=== PATIENT | male | born 1990 | race African-American/Black ===

== ENCOUNTER 2019-12-19 16:36 | Inpatient (IN) | payer MEDICAID ==
[~2019-12-19] VITALS: Ht 190.5 cm; Wt 100.1 kg
--- NOTE | 2019-12-19 16:48 | NUR ---
PT VERY VAGUE WITH SYMPTOMS AT THIS TIME. DR. MENDEZ AT BEDSIDE. PT'S SIGNIFICANT OTHER AT BEDSIDE.
[2019-12-19 17:19] LABS: BASOPHILS 0.4 % (0-2); HEMATOCRIT 43.5 % (42.0-54.0); HEMOGLOBIN 15.1 g/dL (13.5-17.5); IMMATURE GRANULOCYTES 0.1 % (0-5); LYMPHOCYTES 30.8 % (15-50); MCH 28.8 pg (26.0-34.0); MCHC 34.7 g/dL (31.0-37.0); MEAN PLATELET VOLUME 10.9 fL (7.4-10.4); MONOCYTES 8.3 % (2-11); NEUTROPHILS 57.4 % (40-80); PLATELET COUNT 211 10x3/uL (130-400); RBC 5.24 10x6/uL (4.20-6.10); RDW 11.9 % (11.5-14.5); WBC 9.8 10x3/uL (4.8-10.8)
[2019-12-19 18:13] LABS: CALC OSMOLALITY 282 mosm/kg (275-300); CALCIUM 9.8 mg/dL (8.5-10.1); CHLORIDE - SERUM 98 mmol/L (98-107); GLUCOSE 232 mg/dL (74-106); POTASSIUM - SERUM 3.6 mmol/L (3.5-5.1); SODIUM 138 mmol/L (136-145); UREA NITROGEN 12 mg/dL (7-18); eGFR NON AFRICAN AMERICAN > 90 mL/min (90-120)
[2019-12-19 18:31] LABS: ALBUMIN 4.2 g/dL (3.4-5.0); ALKALINE PHOSPHATASE 102 U/L (30-120); ALT (SGPT) 38 U/L (10-68); AMYLASE - SERUM 48 U/L (25-115); BILIRUBIN - TOTAL 2.78 mg/dL (0.2-1.3); CKMB 0.8 U/L (0.0-3.6); CREATINE KINASE 160 UL (21-232); LIPASE 140 U/L (73-393); PROTEIN - SERUM 8.3 g/dL (6.4-8.2); TROPONIN-I < 0.017 ng/mL (0.000-0.060)
--- NOTE | 2019-12-19 18:55 | NUR ---
REPORT TO FERNIE LLOYD
[2019-12-19 18:56] LABS: APPEARANCE CLEAR (CLEAR); BILIRUBIN NEGATIVE (NEGATIVE); COLOR YELLOW (YELLOW); GLUCOSE 1000 mg/dL (NEGATIVE); KETONE LARGE mg/dL (NEGATIVE); NITRITE NEGATIVE (NEGATIVE); PROTEIN NEGATIVE (NEGATIVE); UDS - AMPHET NEGATIVE QUAL (NEGATIVE); UDS - BARB NEGATIVE QUAL (NEGATIVE); UDS - BENZO NEGATIVE QUAL (NEGATIVE); UDS - COCAINE NEGATIVE QUAL (NEGATIVE); UDS - OPIATE NEGATIVE QUAL (NEGATIVE); UDS - PCP NEGATIVE QUAL (NEGATIVE); UDS - THC POSITIVE QUAL (NEGATIVE); UROBILINOGEN NORMAL (NORMAL)
[2019-12-19 20:14] VITALS: BP 140/82
--- NOTE | 2019-12-19 20:18 | NUR ---
PT REPORTS PAIN/KNOTS TO UPPER GLUTEAL CLEFT. STATES PAINFUL TO SIT/LAY ON BACK. P/W HARDENED AREAS ON BOTH SIDES OF UPPER GLUTEAL CLEFT W/O OBVIOUS REDNESS OR FLUCTUANCE. STATES VERY PAINFUL ON PALPATION. WILL NOTIFY
[2019-12-19 22:40] VITALS: BP 141/83; BMI 26.5
[2019-12-19 23:00] VITALS: BP 138/72
--- NOTE | 2019-12-19 23:14 | NUR ---
PATIENT TO ROOM 1 VIA W/C @ 210O. PATIENT IS AAOX4, UP AD BEAR. SITTING ON SIDE OF BED. NO S/S OF DISTRESS OBSERVED, RR EVEN AND UNLABORED ON ROOM AIR, VSS. PIV TO LT WRIST INFUSING NS @ 250ML/HR. PATIENT DENIES NEEDS AT THIS TIME. CL IN REACH BED LOCKED AND LOWERED. QUICK START, MED REC, ADULT HX, SRS COMPLETED. WILL CTM.
--- NOTE | 2019-12-20 00:56 | NUR ---
REDUCED INFUSION RATE OF NS PER NEW ORDERS. NS NOW INFUSING @ 125ML/HR.
[2019-12-20 04:30] VITALS: BP 117/72
[2019-12-20 06:47] LABS: KETONE - SERUM SMALL mg/dL (NEGATIVE)
[2019-12-20 06:49] LABS: BASOPHILS 0.2 % (0-2); EOSINOPHILS 3.7 % (0-7); HEMOGLOBIN 12.5 g/dL (13.5-17.5); IMMATURE GRANULOCYTES 0.1 % (0-5); LYMPHOCYTES 33.6 % (15-50); MCH 28.2 pg (26.0-34.0); MCHC 33.8 g/dL (31.0-37.0); MCV 83.5 fL (80.0-100.0); MEAN PLATELET VOLUME 11.2 fL (7.4-10.4); MONOCYTES 8.7 % (2-11); NEUTROPHILS 53.7 % (40-80); PLATELET COUNT 213 10x3/uL (130-400); RBC 4.43 10x6/uL (4.20-6.10); RDW 12.1 % (11.5-14.5); WBC 9.7 10x3/uL (4.8-10.8)
[2019-12-20 07:02] LABS: ALKALINE PHOSPHATASE 71 U/L (30-120); BILIRUBIN - TOTAL 2.03 mg/dL (0.2-1.3); CALCIUM 7.9 mg/dL (8.5-10.1); CARBON DIOXIDE 19.4 mmol/L (21.0-32.0); CHLORIDE - SERUM 105 mmol/L (98-107); CREATINE KINASE 188 UL (21-232); CREATININE - SERUM 0.8 mg/dL (0.6-1.3); MAGNESIUM - SERUM 1.8 mg/dL (1.8-2.4); PHOSPHOROUS 3.7 mg/dL (2.5-4.9); POTASSIUM - SERUM 3.5 mmol/L (3.5-5.1); PROTEIN - SERUM 6.5 g/dL (6.4-8.2); SODIUM 138 mmol/L (136-145); UREA NITROGEN 11 mg/dL (7-18); eGFR NON AFRICAN AMERICAN > 90 mL/min (90-120)
[2019-12-20 07:04] LABS: ALBUMIN 2.9 g/dL (3.4-5.0); ALT (SGPT) 28 U/L (10-68); CALC OSMOLALITY 279 mosm/kg (275-300); GLUCOSE 182 mg/dL (74-106)
--- NOTE | 2019-12-20 07:24 | NUR ---
REPORT RECEIVED. WILL CONTINUE WITH POC. PT CURRENTLY LYING SUPINE. CALL LIGHT W/I REACH. RR EVEN AND UNLABORED ON RA. NS INFUSING @125ML/HR VIA L.WRIST PIV. NO S/S OF DISTRESS NOTED. PT DENIES ANY NEEDS AT THIS TIME. FRIEND CURRENTLY IN BED WITH PT. WILL CTM.
[2019-12-20 08:32] VITALS: BP 122/78
[2019-12-20 13:01] VITALS: BP 112/76
[2019-12-20 14:09] VITALS: BMI 26.4
--- NOTE | 2019-12-20 15:21 | NUR ---
I have reviewed this patient and I concur with the Shift Assessment completed by the Licensed Practical Nurse today this shift.
--- NOTE | 2019-12-20 16:37 | NUR ---
ORTHOSTATICS COMPLETE. BP LYING SUPINE 143/76. SITTING 132/68. STANDING 139/76. PT ASYMPTOMATIC THROUGH TRANSITION FROM LYING TO STANDING. WILL CTM.
[2019-12-20 16:53] VITALS: BP 143/76
[2019-12-20 17:09] VITALS: Ht 190.5 cm; Wt 100.1 kg
--- NOTE | 2019-12-20 19:25 | NUR ---
REPORT RECEIVED, WILL CONTINUE POC. PATIENT IS AAOX4, LYING IN SEMI-FOWLERS POSITION. NO S/S OF DISTRESS OBSERVED, RR EVEN AND UNLABORED ON ROOM AIR. PIV TO LT WRIST INFUSING NS @ 125ML/HR. PATIENT DENIES NEEDS AT THIS TIME. CL IN REACH, BED LOCKED AND LOWERED. WILL CTM.
[2019-12-20 20:00] VITALS: BP 127/64
--- NOTE | 2019-12-20 21:10 | NUR ---
PATIENT WAS CONCERNED ABOUT HIS FIANCE, SHE WAS LYING ON RT SIDE RESTING WITH EYES CLOSED. SKIN WAS VERY FLUSHED AND NOT RESPONDING TO ATTEMPTS TO WAKE HER. OBTAINED VS. BP, SPO2 AND RR WERE WNL, HR WAS 133 BPM. SHE WAS STILL NOT AROUSING TO STIMULI. CONSULTED WITH CHARGE NURSE AND DECISION WAS MADE TO CALL ER AND REQUEST A GERNEY AND THE ER DOCTOR TO EXAMINE PATIENT. AFTER BEING INFORMED THAT PATIENT HAS KNOWN CARDIAC ISSUES A RAPID RESPONSE WAS CALLED. ER ASSUMED CARE.
[2019-12-21] VITALS: BP 138/73
--- NOTE | 2019-12-21 00:42 | NUR ---
CALLED INTO PATIENTS ROOM BY HA TO LOOK AT PATIENTS SACRAL AREA. SHE SAID SHE WAS SQUEEZING IT AND IT BURST. SMALL AMOUNT OF SEROSANGUINOUS DRAINAGE WAS PRESENT ALONG WITH AN ODOR. WOUND CONSULT PLACED.
--- NOTE | 2019-12-21 01:14 | NUR ---
I have reviewed this patient and I concur with the Shift Assessment completed by the Licensed Practical Nurse today this shift.
[2019-12-21 05:41] LABS: BASOPHILS 0.1 % (0-2); EOSINOPHILS 4.9 % (0-7); HEMATOCRIT 37.8 % (42.0-54.0); HEMOGLOBIN 12.7 g/dL (13.5-17.5); IMMATURE GRANULOCYTES 0.2 % (0-5); LYMPHOCYTES 34.8 % (15-50); MCH 27.9 pg (26.0-34.0); MCHC 33.6 g/dL (31.0-37.0); MCV 82.9 fL (80.0-100.0); MEAN PLATELET VOLUME 11.1 fL (7.4-10.4); MONOCYTES 6.7 % (2-11); NEUTROPHILS 53.3 % (40-80); PLATELET COUNT 227 10x3/uL (130-400); RBC 4.56 10x6/uL (4.20-6.10); RDW 12.1 % (11.5-14.5); WBC 8.2 10x3/uL (4.8-10.8)
[2019-12-21 05:53] LABS: CALCIUM 8.3 mg/dL (8.5-10.1); CHLORIDE - SERUM 105 mmol/L (98-107); CREATININE - SERUM 0.7 mg/dL (0.6-1.3); GLUCOSE 225 mg/dL (74-106); POTASSIUM - SERUM 3.4 mmol/L (3.5-5.1); SODIUM 139 mmol/L (136-145); eGFR NON AFRICAN AMERICAN > 90 mL/min (90-120)
[2019-12-21 05:54] LABS: UREA NITROGEN 6 mg/dL (7-18)
[2019-12-21 05:55] LABS: CALC OSMOLALITY 282 mosm/kg (275-300); CARBON DIOXIDE 24.6 mmol/L (21.0-32.0)
[2019-12-21 06:19] LABS: KETONE - SERUM SMALL mg/dL (NEGATIVE)
--- NOTE | 2019-12-21 07:43 | NUR ---
PATIENT IS RESTING ON HIS BACK IN BED WITH GIRLFRIEND AT THIS TIME. DENIES ANY NEEDS AT THIS TIME.
--- NOTE | 2019-12-21 08:52 | MORECARE ---
CASE MANAGEMENT DISCHARGE SUMMARY PATIENT: PAOLA PEÑA UNIT: [id number] ADM DATE: 12/19/19 AGE: 29 : [birth year] SEX: M ROOM/BED: D.2111 AUTHOR: RAGHU REN PHYSICIAN: REFERRING PHYSICIAN: HENYR MOCTEZUMA MD DATE OF SERVICE: 12/21/19 Discharge Plan Patient Name: PAOLA PEÑA [facility] [facility] 1990 Planned Disposition: Home Anticipated Discharge Date: 12/21/19 Discharge Date: Expected LOS: 2 Initial Reviewer: [email or web address] Initial Review Date: 12/20/2019 Generated: 12/21/19 9:52 am DCPIA - Discharge Planning Initial Assessment Updated by [email or web address]: Isai Lora on 12/21/19 8:49 am * Is the patient Alert and Oriented? Yes * How many steps to enter\exit or inside your home? * PCP NONE; REFERRED TO [facility] & DR. ARCINIEGA * Pharmacy [facility] * Preadmission Environment Home with Family * ADLs Independent * Equipment None * Other Equipment HAS KNEE BRACE HE USES OCCAISIONALLY * List name and contact numbers for known caregivers / representatives who currently or will assist patient after discharge: HA PEACOCK, * Verbal permission to speak to the caregivers and representatives has been obtained from the patient. Yes * Community resources currently utilized None * Please name any agencies selected above. NONE * Additional services required to return to the preadmission environment? No * Can the patient safely return to the preadmission environment? Yes * Has this patient been hospitalized within the prior 30 days at any hospital? No Patient Name: PAOLA PEÑA Page [id number] at 0852 All edits/amendments must be made on the electronic document DICTATION DATE: 12/21/19851 NANOTECHNOLOGY TECHNICIAN: OJ 12/21/19851 RPT#: [id number] DC DATE: STATUS: ADM IN [facility] [address] [place] [address] END OF REPORT
--- NOTE | 2019-12-21 09:00 | MORECARE ---
CASE MANAGEMENT DISCHARGE SUMMARY PATIENT: PAOLA PEÑA UNIT: [id number] ADM DATE: 12/19/19 AGE: 29 : [birth year] SEX: M ROOM/BED: D.2111 AUTHOR: GELA,DOC PHYSICIAN: REFERRING PHYSICIAN: HENRY MOCTEZUMA MD DATE OF SERVICE: 12/21/19 Discharge Plan Patient Name: PAOLA PEÑA Facility: [facility]:[place] : 1990 Planned Disposition: Home Anticipated Discharge Date: 12/21/19 Discharge Date: Expected LOS: 2 Initial Reviewer: [email or web address] Initial Review Date: 12/20/2019 Generated: 12/21/19 9:59 am Comments DCP- Discharge Planning Updated by [email or web address]: Isai Lora on 12/21/19 7:[address] Patient Name: PAOLA PEÑA Admission Status: ER Accout number: [id number] Admission Date: 12-19-2019 : 1990 Admission Diagnosis: Attending: HENRY MOCTEZUMA Current LOS: 2 Anticipated DC Date: 12-21-2019 Planned Disposition: Home Primary Insurance: MEDICAID [place] PEND[place] Discharge Planning Comments: CM RECEIVED ORDER FOR POSSIBLE NEED OF ASSISTANCE FOR DIABETIC TREATMENT SUPPLIES. CM MET WITH PT AND HA IN ROOM TO DISCUSS DISCHARGE PLANNING AND NEEDS. PAOLA PEÑA provided verbal consent to discuss current and ongoing needs with/in the presence of: SHOAIB BONNER. PT REPORTS LIVING AT HOME INDEPENDENTLY WITH FRIENDS. 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 PT HAS NO MEDICAL EQUIPMENT AND NO OUTSIDE SERVICES ASSISTING IN THE HOME. CM DISCUSSED AVAILABILITY OF HOME HEALTH, REHAB SERVICES AND MEDICAL EQUIPMENT. PT DENIES DISCHARGE NEEDS AT THIS TIME. PT DOES NOT HAVE INSURANCE AND THE HOSPITAL HAS FILED FOR MEDICAID FOR HIM. CM PROVIDED INFORMATION TO THE [place] [employer] SERVICES TO FOLLOW UP ON MEDICAID STATUS AND ALSO THE HEALTHCARE.GOV WEBSITE INFORMATION TO APPLY FOR INSURANCE IN THE FUTURE IF NEEDED. PT MAY BE ABLE TO AFFORD HIS SUPPLIES BUT DOES NOT KNOW WHAT THE DOCTOR PLANS TO DISCHARGE HIM ON YET. PT DOES USE [employer] ON [address] FOR PRESCRIPTIONS. CM DISCUSSED USING A LOWER COST PHARMACY SUCH [facility] OR [facility] TO SAVE MONEY. PT'S FIANCE REPORTS HAVING AND USING SUCCESSFULLY, [employer] RX DISCOUNT CARD WELL ONE OTHER PROGRAM CARD. PT IS FAMILIAR WITH [facility] FOR PRESCRIPTION ASSISTANCE IF NEEDED. PT REPORTS FRIENDS WILL PICK HIM UP FOR DISCHARGE HOME. PT MAY BE ABLE TO AFFORD ALL DIABETIC TREATMENT EQUIPMENT AND SUPPLIES FOR DISCHARGE HOME; CM WAITING ON DISCHARGE MEDICATIONS TO DETERMINE COSTS OF NEEDED MEDICATIONS AND WILL REVISIT WITH PT WHEN THIS INFORMATION IS KNOWN. Manager Business Banking: Isai Lora DCPIA - Discharge Planning Initial Assessment Updated by [email or web address]: Isai Lora on 12/21/19 8:49 am * Is the patient Alert and Oriented? Yes * How many steps to enter\exit or inside your home? * PCP NONE; REFERRED TO [email or web address] & DR. ARCINIEGA * Pharmacy [facility] * Preadmission Environment Home with Family * ADLs Independent * Equipment None * Other Equipment HAS KNEE BRACE HE USES OCCAISIONALLY * List name and contact numbers for known caregivers / representatives who currently or will assist patient after discharge: SHOAIB DIAZ HA, * Verbal permission to speak to the caregivers and representatives has been obtained from the patient. Yes * Community resources currently utilized None * Please name any agencies selected above. NONE * Additional services required to return to the preadmission environment? No * Can the patient safely return to the preadmission environment? Yes * Has this patient been hospitalized within the prior 30 days at any hospital? No Last DP export: 12/21/19 7:52 a Patient Name: PAOLA PEÑA Page [id number] at 0900 All edits/amendments must be made on the electronic document DICTATION DATE: 12/21/19858 GOVERNMENT CLERK: DM 12/21/19858 RPT#: [id number] DC DATE: STATUS: ADM IN [facility] [address] [place] [address] END OF REPORT
[2019-12-21 09:53] VITALS: BP 122/72
[2019-12-21] MEDS ORDERED: HUMULIN 70100 UNIT/1 (12:28)
--- NOTE | 2019-12-21 12:37 | NUR ---
UPON ADMIT, PARTH HAS NOT HAD A FLU SHOT. WHEN QUESTIONED FOR DISCHARGE, HE REFUSED.
--- NOTE | 2019-12-21 13:06 | NUR ---
Nutrition Follow-up: Pt voiced no further questions re: diabetic diet. Noted plans to d/c today. Diet: Diabetic PO intake: 75-100% Wt: 220# (12/21); 212# (12/20) Labs noted: K+ 3.4, Glu 225, Ca 8.3 Meds noted: KDur, Humulin, NS @ 125 -Continue current diet as tolerated. -May benefit from OP DM education. -RD following.
--- NOTE | 2019-12-21 13:50 | NUR ---
PATIENT IS BEING DISCHARGED. ALL DISCHARGE TEACHING HAS BEEN DONE AND PAPERS SIGNED. PATIENT IS CONFIDENT ABOUT GIVING HIMSELF INSULIN AND HAS FAMILY SUPPORT. RESOURCES GIVEN. IV REMOVED WITH CATHETER INTACT. ALL PATIENT BELONGINGS ARE GOING HOME WITH THE PATIENT.
--- NOTE | 2019-12-21 14:51 | MORECARE ---
CASE MANAGEMENT DISCHARGE SUMMARY PATIENT: PAOLA PEÑA UNIT: [id number] ADM DATE: 12/19/19 AGE: 29 : [birth year] SEX: M ROOM/BED: D.2111 AUTHOR: GELA,DOC PHYSICIAN: REFERRING PHYSICIAN: HENRY MOCTEZUMA MD DATE OF SERVICE: 12/21/19 Discharge Plan Patient Name: PAOLA PEÑA Facility: [facility]:[place] : 1990 Planned Disposition: Home Anticipated Discharge Date: 12/21/19 Discharge Date: 12/21/2019 Expected LOS: 2 Initial Reviewer: [email or web address] Initial Review Date: 12/20/2019 Generated: 12/21/19 3:51 pm Comments DCP- Discharge Planning Updated by [email or web address]: Isai Lora on 12/21/19 7:[address] Patient Name: PAOLA PEÑA Admission Status: ER Accout number: [id number] Admission Date: 12-19-2019 : 1990 Admission Diagnosis: Attending: HENRY MOCTEZUMA Current LOS: 2 Anticipated DC Date: 12-21-2019 Planned Disposition: Home Primary Insurance: MEDICAID [place] PENDING Discharge Planning Comments: CM RECEIVED ORDER FOR POSSIBLE NEED OF ASSISTANCE FOR DIABETIC TREATMENT SUPPLIES. CM MET WITH PT AND HA IN ROOM TO DISCUSS DISCHARGE PLANNING AND NEEDS. PAOLA PEÑA provided verbal consent to discuss current and ongoing needs with/in the presence of: SHOAIB BONNER. PT REPORTS LIVING AT HOME INDEPENDENTLY WITH FRIENDS. 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 PT HAS NO MEDICAL EQUIPMENT AND NO OUTSIDE SERVICES ASSISTING IN THE HOME. CM DISCUSSED AVAILABILITY OF HOME HEALTH, REHAB SERVICES AND MEDICAL EQUIPMENT. PT DENIES DISCHARGE NEEDS AT THIS TIME. PT DOES NOT HAVE INSURANCE AND THE HOSPITAL HAS FILED FOR MEDICAID FOR HIM. CM PROVIDED INFORMATION TO THE [place] [employer] HUM[employer] SERVICES TO FOLLOW UP ON MEDICAID STATUS AND ALSO THE HEALTHCARE.GOV WEBSITE INFORMATION TO APPLY FOR INSURANCE IN THE FUTURE IF NEEDED. PT MAY BE ABLE TO AFFORD HIS SUPPLIES BUT DOES NOT KNOW WHAT THE DOCTOR PLANS TO DISCHARGE HIM ON YET. PT DOES USE [employer] [address] FOR PRESCRIPTIONS. CM DISCUSSED USING A LOWER COST PHARMACY SUCH [facility] OR [facility] TO SAVE MONEY. PT'S HA REPORTS HAVING AND USING SUCCESSFULLY, [employer] DISCOUNT CARD WELL ONE OTHER PROGRAM CARD. PT IS FAMILIAR WITH [facility] FOR PRESCRIPTION ASSISTANCE IF NEEDED. PT REPORTS FRIENDS WILL PICK HIM UP FOR DISCHARGE HOME. PT MAY BE ABLE TO AFFORD ALL DIABETIC TREATMENT EQUIPMENT AND SUPPLIES FOR DISCHARGE HOME; CM WAITING ON DISCHARGE MEDICATIONS TO DETERMINE COSTS OF NEEDED MEDICATIONS AND WILL REVISIT WITH PT WHEN THIS INFORMATION IS KNOWN. Tube Roller: Isai Lora DCPIA - Discharge Planning Initial Assessment Updated by [id number]: Isai Lora on 12/21/19 8:49 am * Is the patient Alert and Oriented? Yes * How many steps to enter\exit or inside your home? * PCP NONE; REFERRED TO [facility] & DR. ARCINIEGA * Pharmacy [facility] * Preadmission Environment Home with Family * ADLs Independent * Equipment None * Other Equipment HAS KNEE BRACE HE USES OCCAISIONALLY * List name and contact numbers for known caregivers / representatives who currently or will assist patient after discharge: SHOAIB DIAZ HA, * Verbal permission to speak to the caregivers and representatives has been obtained from the patient. Yes * Community resources currently utilized None * Please name any agencies selected above. NONE * Additional services required to return to the preadmission environment? No * Can the patient safely return to the preadmission environment? Yes * Has this patient been hospitalized within the prior 30 days at any hospital? No Last DP export: 12/21/19 8:00 a Patient Name: PAOLA PEÑA Page [phone] at 1451 All edits/amendments must be made on the electronic document DICTATION DATE: 12/21/19 1451 DRAGLINE ENGINEER: DM 12/21/19 1451 RPT#: [id number] DC DATE:12/21/19 STATUS: DIS IN [facility] [address] [place] [address] END OF REPORT
--- NOTE | 2019-12-21 15:02 | MORECARE ---
CASE MANAGEMENT DISCHARGE SUMMARY PATIENT: PAOLA PEÑA UNIT: [id number] ADM DATE: 12/19/19 AGE: 29 : [birth year] SEX: M ROOM/BED: D.2111 AUTHOR: GELA,DOC PHYSICIAN: REFERRING PHYSICIAN: HENRY MOCTEZUMA MD DATE OF SERVICE: 12/21/19 Discharge Plan Patient Name: PAOLA PEÑA Facility: [facility]:[place] : 1990 Planned Disposition: Home Anticipated Discharge Date: 12/21/19 Discharge Date: 12/21/2019 Expected LOS: 2 Initial Reviewer: [email or web address] Initial Review Date: 12/20/2019 Generated: 12/21/19 4:02 pm Comments DCP- Discharge Planning Updated by [email or web address]: Isai Lora on 12/21/19 1:[address] Patient Name: PAOLA PEÑA Encounter No: [id number] : 1990 Primary Insurance: MEDICAID [place] PENDING Anticipated DC Date: 12-21-2019 Planned Disposition: Home DCP follow-up note: CM RECEIVED DISCHARGE MEDICATIONS, HUMULIN 70/30, GLUCOMETER, TEST STRIPS, LANCETS, SYRINGES AND ALCOHOL WIPES. CM PRICED ALL MATERIALS AT [employer]. CM PRESENTED PRICES TO PT AND HIS MOTHER IN ROOM. PT REPORTS ABILITY TO AFFORD INSULIN ([facility] SUBSITUTING NOVOLIN FOR HUMULIN, COSTS OF $24 PER VIAL). PT'S MOTHER REPORTS SHE HAS METER FOR PT AT HOME. THEY INFORMED CM THAT THE SUPPLIES AND MEDICATION ARE AFFORDABLE. PT REPORTS HAVING ALL INSTRUCTIONS FROM NURSE AND CAN CARE FOR HIMSELF AND HE HAS THE ASSISTANCE OF HIS MOTHER. PT ASKED CM TO CALL [facility] [employer] TO CHECK TO SEE IF KRISTINE NEEDED FURTHER INFORMATION FOR MEDICAID APPLICATION; CM CALLED AND SPOKE TO KRISTINE WHO DID NOT NEED TO SEE PT AGAIN. CM NOTIFIED PT AND BEDSIDE NURSE. CM ALSO PROVIDED PT WITH [employer] DISCOUNT CARD FOR POSSIBLE ASSISTANCE WITH PRESCRIPTION DRUG PRICES. PT DISCHARGED WITH ASSISTANCE OF HIS MOTHER. Isai Lora, CASE MANAGEMENT DCP- Discharge Planning Updated by [id number]: Isai Lora on 12/21/19 7:[address] Patient Name: PAOLA PEÑA Admission Status: ER Accout number: [id number] Admission Date: 12-19-2019 : 1990 Admission Diagnosis: Attending: HENRY MOCTEZUMA Current LOS: 2 Anticipated DC Date: 12-21-2019 Planned Disposition: Home Primary Insurance: MEDICAID [place] PENDING Discharge Planning Comments: CM RECEIVED ORDER FOR POSSIBLE NEED OF ASSISTANCE FOR DIABETIC TREATMENT SUPPLIES. CM MET WITH PT AND FISHERIF IN ROOM TO DISCUSS DISCHARGE PLANNING AND NEEDS. PAOLA Olinda PEÑA provided verbal consent to discuss current and ongoing needs with/in the presence of: SHOAIB BONNER. PT REPORTS LIVING AT HOME INDEPENDENTLY WITH FRIENDS. 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 PT HAS NO MEDICAL EQUIPMENT AND NO OUTSIDE SERVICES ASSISTING IN THE HOME. CM DISCUSSED AVAILABILITY OF HOME HEALTH, REHAB SERVICES AND MEDICAL EQUIPMENT. PT DENIES DISCHARGE NEEDS AT THIS TIME. PT DOES NOT HAVE INSURANCE AND THE HOSPITAL HAS FILED FOR MEDICAID FOR HIM. CM PROVIDED INFORMATION TO THE [place] [employer] SERVICES TO FOLLOW UP ON MEDICAID STATUS AND ALSO THE [employer] WEBSITE INFORMATION TO APPLY FOR INSURANCE IN THE FUTURE IF NEEDED. PT MAY BE ABLE TO AFFORD HIS SUPPLIES BUT DOES NOT KNOW WHAT THE DOCTOR PLANS TO DISCHARGE HIM ON YET. PT DOES USE [facility] ON [address] FOR PRESCRIPTIONS. CM DISCUSSED USING A LOWER COST PHARMACY SUCH for[facility] OR [facility] TO SAVE MONEY. PT'S HA REPORTS HAVING AND USING SUCCESSFULLY, [employer] DISCOUNT CARD WELL ONE OTHER PROGRAM CARD. PT IS FAMILIAR WITH [facility] FOR PRESCRIPTION ASSISTANCE IF NEEDED. PT REPORTS FRIENDS WILL PICK HIM UP FOR DISCHARGE HOME. PT MAY BE ABLE TO AFFORD ALL DIABETIC TREATMENT EQUIPMENT AND SUPPLIES FOR DISCHARGE HOME; CM WAITING ON DISCHARGE MEDICATIONS TO DETERMINE COSTS OF NEEDED MEDICATIONS AND WILL REVISIT WITH PT WHEN THIS INFORMATION IS KNOWN. Chassis Wirer: Isai Lora DCPIA - Discharge Planning Initial Assessment Updated by [email or web address]: Isai Lora on 12/21/19 8:49 am * Is the patient Alert and Oriented? Yes * How many steps to enter\exit or inside your home? * PCP NONE; REFERRED TO [facility] & DR. ARCINIEGA * [facility] [employer] [facility] * Preadmission Environment Home with Family * ADLs Independent * Equipment None * Other Equipment HAS KNEE BRACE HE USES OCCAISIONALLY * List name and contact numbers for known caregivers / representatives who currently or will assist patient after discharge: HA PEACOCK, * Verbal permission to speak to the caregivers and representatives has been obtained from the patient. Yes * Community resources currently utilized None * Please name any agencies selected above. NONE * Additional services required to return to the preadmission environment? No * Can the patient safely return to the preadmission environment? Yes * Has this patient been hospitalized within the prior 30 days at any hospital? No Last DP export: 12/21/19 1:51 p Patient Name: PAOLA PEÑA Page [id number] at 1502 All edits/amendments must be made on the electronic document DICTATION DATE: 12/21/19 1502 FABRIC STRETCHER: OJ 12/21/19 1502 RPT#: [id number] DC DATE:12/21/19 STATUS: DIS IN [facility] [address] [place] [address] END OF REPORT
== END 2019-12-21 14:16 | disposition home or self-care (01) | DRG 639 ==
LOC: D.ER 16:36 → D.M2 19:45
PROVIDERS: Family Medicine; ADMIT Internal Medicine Nephrology; ATTEND Internal Medicine Nephrology
DX: E11.10 Type 2 diabetes mellitus with ketoacidosis without coma (principal); D64.9 Anemia, unspecified; F41.9 Anxiety disorder, unspecified; R55 Syncope and collapse; E11.65 Type 2 diabetes mellitus with hyperglycemia; Z87.891 Personal history of nicotine dependence

== ENCOUNTER 2020-06-28 21:07 | Emergency (ER) | payer MEDICAID ==
[~2020-06-28] VITALS: Ht 190.5 cm; Wt 72.6 kg
[~2020-06-28 21:07] MED LIST: HUMULIN 70100 UNIT/1
[2020-06-28 21:15] VITALS: Ht 190.5 cm; Wt 72.6 kg
[2020-06-28 21:40] LABS: BASOPHILS 0.4 % (0-2); HEMATOCRIT 43.9 % (42.0-54.0); HEMOGLOBIN 14.5 g/dL (13.5-17.5); IMMATURE GRANULOCYTES 0.2 % (0-5); LYMPHOCYTES 25.6 % (15-50); MCH 28.4 pg (26.0-34.0); MCV 85.9 fL (80.0-100.0); MEAN PLATELET VOLUME 10.1 fL (7.4-10.4); MONOCYTES 7.7 % (2-11); NEUTROPHILS 64.1 % (40-80); PLATELET COUNT 259 10x3/uL (130-400); RBC 5.11 10x6/uL (4.20-6.10); RDW 12.3 % (11.5-14.5); WBC 10.3 10x3/uL (4.8-10.8)
[2020-06-28 21:48] LABS: CALC OSMOLALITY 282 mosm/kg (275-300); CALCIUM 8.8 mg/dL (8.5-10.1); CARBON DIOXIDE 28.3 mmol/L (21.0-32.0); CHLORIDE - SERUM 105 mmol/L (98-107); CREATININE - SERUM 1.1 mg/dL (0.6-1.3); GLUCOSE 155 mg/dL (74-106); POTASSIUM - SERUM 4.2 mmol/L (3.5-5.1); SODIUM 140 mmol/L (136-145); UREA NITROGEN 14 mg/dL (7-18); eGFR NON AFRICAN AMERICAN 85 mL/min (90-120)
[2020-06-28 22:02] LABS: ALBUMIN 4.2 g/dL (3.4-5.0); ALKALINE PHOSPHATASE 81 U/L (30-120); ALT (SGPT) 72 U/L (10-68); BILIRUBIN - TOTAL 1.31 mg/dL (0.2-1.3); CKMB 0.8 U/L (0.0-3.6); CREATINE KINASE 312 UL (21-232); MAGNESIUM - SERUM 2.3 mg/dL (1.8-2.4); PROTEIN - SERUM 8.1 g/dL (6.4-8.2)
[2020-06-28 22:06] LABS: TROPONIN-I < 0.017 ng/mL (0.000-0.060)
[2020-06-28 23:09] VITALS: BP 128/68
== END 2020-06-28 23:09 | disposition home or self-care (01) ==
LOC: D.ER 21:07
PROVIDERS: Family Medicine
DX: R55 Syncope and collapse (principal); E11.9 Type 2 diabetes mellitus without complications; R11.0 Nausea